=== PATIENT | female | born 1980 | race Caucasian/White ===

== ENCOUNTER 2023-09-22 23:25 | Emergency (ER) | payer MEDICAID ==
[~2023-09-22] VITALS: Ht 152.4 cm; Wt 65.0 kg
[2023-09-22 23:52] VITALS: BP 84/42; PULSE 75; RESP 16; TEMP 98.1; O2SAT 100
[2023-09-23] MEDS: KETOROLAC 30MG/ML VIAL IM ONE (01:22)
[2023-09-23] MEDS ORDERED: IBUP-2029 MT (03:34)
== END 2023-09-23 05:31 | disposition home or self-care (01) ==
LOC: ER 23:29
DX: S82.142A Displaced bicondylar fracture of left tibia, initial encounter for closed fracture (principal); Z98.890 Other specified postprocedural states; Z90.49 Acquired absence of other specified parts of digestive tract; W18.39XA Other fall on same level, initial encounter; Y93.89 Activity, other specified; Y92.89 Other specified places as the place of occurrence of the external cause; Y99.8 Other external cause status
CPT/HCPCS: 99284; 73110; 73562; 96372; J1885; Z7610